=== PATIENT | female | born 1955 ===

== ENCOUNTER 2019-12-01 17:43 | Outpatient (REF) | payer MEDICARE, SELFPAY ==
[2019-12-04 02:33] LABS: COVID-19 RT-PCR Result NEGATIVE (Negative)
== END 2019-12-01 18:03 ==
LOC: NCHCN 17:43
PROVIDERS: Visit Provider Nurse Practitioner Family
DX: Z11.59 Encounter for screening for other viral diseases (principal)
CPT/HCPCS: U0003